=== PATIENT | female | born 1955 | race Caucasian/White ===

== ENCOUNTER 2019-07-09 14:33 | Emergency (ER) | payer OTHER ==
[2019-07-09] MEDS ORDERED: METHOCARBAMOL 500 MG TABLET PO ONE (16:28)
[2019-07-09] MEDS ORDERED: TRAMADOL HCL 50 MG TABLET PO ONE (16:28)
[2019-07-09] MEDS ORDERED: DIPH/PERTUSS(ACELL)/TETANUS VAC/PF 0.5 ML SYR (>=10YO) IM ONE (16:31)
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
[2019-07-09 18:26] VITALS: BP 103/69
== END 2019-07-09 18:26 | disposition home or self-care (01) ==
LOC: ER 14:33
DX: S50.812A Abrasion of left forearm, initial encounter (principal); M54.5 Low back pain; M25.532 Pain in left wrist; R51 Headache; M54.2 Cervicalgia; Z23 Encounter for immunization; V43.52XA Car driver injured in collision with other type car in traffic accident, initial encounter
CPT/HCPCS: 71046; 72110; 72125; 90471; 90715; 99284